=== PATIENT | female | born 1975 | race Asian ===

== ENCOUNTER 2024-08-13 07:37 | Emergency (ER) | payer BC ==
[~2024-08-13] VITALS: Ht 160 cm; Wt 55.8 kg
[2024-08-13] MEDS ORDERED: ACET1TAB23 PO (10:19)
[2024-08-13 10:33] VITALS: BP 127/78; O2SAT 99
== END 2024-08-13 10:34 | disposition home or self-care (01) ==
LOC: ER 07:37
DX: J11.1 Influenza due to unidentified influenza virus with other respiratory manifestations (principal)
CPT/HCPCS: 86403; 87070; A4606; A4663